=== PATIENT | female | born 1985 | race Caucasian/White ===

== ENCOUNTER 2018-10-01 22:00 | Emergency (ER) | payer BC, OTHER, MEDICAID ==
[~2018-10-01] VITALS: Ht 167.6 cm; Wt 90.9 kg
[~2018-10-01 22:00] MED LIST: /MIRT15TA OR; CLON1TAB8 PO; D400400C PO; DEPA500T2 PO; EFFE150C2 PO; EFFE37.527 OR; EFFE75CA2 PO; EFFE75CA75 OR; KLON0.5T OR; LAMI25TA OR; LAMO10TA PO; PRENTAB7 PO; RISP1TAB OR; TRAZ100T OR; TRAZ1TAB14 PO; TUMS500C PO; VITAPRTA PO; ZOLO100T PO; saphris SC
[2018-10-01] MEDS ORDERED: FLUO20CA19 (22:07)
[2018-10-01] MEDS ORDERED: ASPIRIN 81 MG CHEW TABLET PO ONE (22:30)
[2018-10-01 22:44] LABS: BASO % 0.5 % (0.0-1.0); EOS # 0.3 10^3/uL (0.0-0.50); EOS % 3.8 % (0.0-3.0); HEMATOCRIT 38.5 % (36.0-47.0); HEMOGLOBIN 12.6 g/dl (12.0-15.5); LYMPH # 2.6 10^3/uL (1.5-4.5); LYMPH % 35.4 % (24.0-44.0); MEAN CORPUSCULAR HEMOGLOBIN 30.5 pg (27.0-33.0); MEAN CORPUSCULAR HGB CONC 32.7 g/dl (32.0-36.5); MEAN CORPUSCULAR VOLUME 93.2 fl (80.0-96.0); MONO # 0.5 10^3/uL (0.0-0.8); MONO % 6.6 % (0.0-5.0); NEUTROPHILS # 3.9 10^3/uL (1.8-7.7); NEUTROPHILS % 53.3 % (36.0-66.0); PLATELET COUNT, AUTOMATED 287 10^3/uL (150-450); RED BLOOD COUNT 4.13 10^6/uL (4.00-5.40); WHITE BLOOD COUNT 7.3 10^3/uL (4.0-10.0)
[2018-10-01 23:08] LABS: INR 0.9; PARTIAL THROMBOPLASTIN TIME 28.9 SECONDS (25.4-37.6); PROTHROMBIN TIME 12.2 SECONDS (12.1-14.4)
[2018-10-01 23:12] LABS: HCG, SERUM QUALITATIVE NEGATIVE (NEGATIVE)
[2018-10-01 23:20] LABS: ALBUMIN 3.9 GM/DL (3.2-5.2); ALT/SGPT 22 U/L (12-78); BILIRUBIN,DIRECT < 0.1 MG/DL (0.0-0.2); BILIRUBIN,TOTAL 0.3 MG/DL (0.2-1.0); BLOOD UREA NITROGEN 13 MG/DL (7-18); CALCIUM LEVEL 8.9 MG/DL (8.5-10.1); CARBON DIOXIDE LEVEL 26 MEQ/L (21-32); CHLORIDE LEVEL 109 MEQ/L (98-107); CPK CREATINE PHOSPHOKINASE 170 U/L (26-192); CREATININE FOR GFR 0.92 MG/DL (0.55-1.30); FREE T4 0.87 NG/DL (0.76-1.46); GLOMERULAR FILTRATION RATE > 60.0 (>60); GLUCOSE, FASTING 86 MG/DL (70-100); LIPASE 130 U/L (73-393); MB/CK RELATIVE INDEX 0.88 (< OR =4); SODIUM LEVEL 141 MEQ/L (136-145); TOTAL PROTEIN 6.8 GM/DL (6.4-8.2); TROPONIN I < 0.02 NG/ML (< 0.10)
[2018-10-01] MEDS ORDERED: ISOVUE-370 76% 100ML VIAL (Q9967) As Ordered ONE (23:25)
--- NOTE | 2018-10-02 00:11 | REPVR ---
EXAM: CT Angiography Chest With Contrast EXAM DATE/TIME: 10/01/2018 11:39 PM CLINICAL HISTORY: 33 years old, female; Pain; Chest pain; Type not specified; Additional info: Chest pain, syncope TECHNIQUE: Axial computed tomographic angiography images of the chest with intravenous contrast using CT angiography protocol. All CT scans at this facility use at least one of these dose optimization techniques: automated exposure control; mA and/or kV adjustment per patient size (includes targeted exams where dose is matched to clinical indication); or iterative reconstruction. Coronal and sagittal reformatted images were created and reviewed. MIP reconstructed images were created and reviewed. CONTRAST: 75 ml of iso administered intravenously. COMPARISON: No relevant prior studies available. FINDINGS: Pulmonary arteries: The main pulmonary artery measures 23 mm. No pulmonary embolism is identified. Aorta: The ascending thoracic aorta measures 25 mm. Lungs: Normal. No consolidation. No masses. Pleural space: Normal. No pneumothorax. No pleural effusion. Heart: Normal. No cardiomegaly. No pericardial effusion. Mediastinum: There is soft tissue conforming to the anterior mediastinum consistent with residual thymic tissue. Lymph nodes: Unremarkable. No enlarged lymph nodes. Bones/joints: Unremarkable. No acute fracture. Soft tissues: Unremarkable. IMPRESSION: Negative CTA chest. No pulmonary embolism is identified. Electronically signed by: Zohaib Lovelace On 10/02/2018 00:11:24 AM
[2018-10-02] MEDS ORDERED: NS 1,000 ML IV ONE (00:15)
[2018-10-02 05:07] LABS: MB/CK RELATIVE INDEX 0.91 (< OR =4); TROPONIN I 0.02 NG/ML (< 0.10)
[2018-10-02 06:27] VITALS: BP 133/85
--- NOTE | 2018-10-03 10:26 | ECGEPIP ---
Stationary ECG Study [facility] - ED Test Date: 2018-10-01 Pat Name: CAIO DUKES Department: Room: - Gender: F Track Inspector: gt : 1985 Requested By: VANDA Luo Order Number: [id number] Reading MD: Bessie Jeffery Measurements Intervals [place] Rate: 72 P: 66 [place]: 151 QRS: 47 QRSD: 87 T: 51 QT: 373 QTc: 409 Interpretive Statements SINUS RHYTHM WITH SINUS ARRHYTHMIA SIMILAR 10/13/14 Electronically Signed On 10-03-2018 10:26:13 EST by Bessie Jeffery
--- NOTE | 2018-10-03 10:30 | ECGEPIP ---
Stationary ECG Study [facility] - ED Test Date: 2018-10-02 Pat Name: CAIO DUKES Department: Room: - Gender: F Cellophaner: [place] : 1985 Requested By: VANDA Luo Order Number: [id number] Reading MD: Bessie Jeffery Measurements Intervals [place] Rate: 57 P: 64 [place]: 135 QRS: 31 QRSD: 85 T: 31 QT: 421 QTc: 413 Interpretive Statements SINUS BRADYCARDIA WITH SINUS ARRHYTHMIA DECREASED RATE 10/01/18 Electronically Signed On 10-03-2018 10:30:07 EST by Bessie Jeffery
== END 2018-10-02 06:31 | disposition home or self-care (01) ==
LOC: M ED 22:00
DX: R07.9 Chest pain, unspecified (principal); F31.9 Bipolar disorder, unspecified; F43.10 Post-traumatic stress disorder, unspecified; F41.9 Anxiety disorder, unspecified
CPT/HCPCS: 71275; 80048; 80076; 82550; 82553; 83690; 84439; 84443; 84484; 84703; 85025; 85610; 85730; 93005; 93041; 94760; 99285; Q9967

== ENCOUNTER → 2021-01-16 | Outpatient (CLI) | payer BC, OTHER, MEDICAID ==
[~2021-01-16] MED LIST changes: -/MIRT15TA OR; +FLUO20CA22; +LAMO100T80 PO; -LAMO10TA PO; +MIRT1TAB20 OR
--- NOTE | 2021-01-16 15:14 | REP ---
INDICATION: SOB COMPARISON: None. TECHNIQUE: PA and lateral. FINDINGS: The mediastinum and cardiac silhouette are normal. The lung cohn are clear and without acute consolidation, effusion, or pneumothorax. The skeletal structures are intact and normal. IMPRESSION: No acute cardiopulmonary process. <Electronically signed by Jimmy Orellana > 01/16/21 0161
== END ==
LOC: M WUC 14:37
PROVIDERS: ATTEND Internal Medicine
DX: R06.02 Shortness of breath (principal)

== ENCOUNTER → 2021-08-23 | Outpatient (CLI) | payer OTHER | LOC: M PLALAB 12:49 | PROVIDERS: ATTEND Advanced Practice Midwife | DX: O36.80X0 Pregnancy with inconclusive fetal viability, not applicable or unspecified (principal) ==

== ENCOUNTER 2021-08-25 19:33 | Emergency (ER) | payer OTHER ==
[~2021-08-25] VITALS: Ht 167.6 cm; Wt 96.4 kg
[2021-08-25 20:50] LABS: BASO # 0.1 10^3/uL (0.0-0.2); BASO % 0.5 % (0.0-1.0); EOS # 0.4 10^3/uL (0.0-0.5); EOS % 4.5 % (0.0-3.0); HEMOGLOBIN 12.5 g/dl (12.0-15.5); LYMPH # 2.7 10^3/uL (1.5-5.0); MEAN CORPUSCULAR HEMOGLOBIN 30.6 pg (27.0-33.0); MEAN CORPUSCULAR HGB CONC 32.9 g/dl (32.0-36.5); MEAN CORPUSCULAR VOLUME 92.9 fl (80.0-96.0); MONO # 0.7 10^3/uL (0.0-0.8); NEUTROPHILS # 5.5 10^3/uL (1.5-8.5); NEUTROPHILS % 58.6 % (36.0-66.0); PLATELET COUNT, AUTOMATED 321 10^3/uL (150-450); RED BLOOD COUNT 4.09 10^6/uL (4.00-5.40); WHITE BLOOD COUNT 9.4 10^3/uL (4.0-10.0)
[2021-08-25 23:23] VITALS: BP 131/82
== END 2021-08-25 23:25 | disposition home or self-care (01) ==
LOC: M ED 19:33
DX: O20.0 Threatened abortion (principal); O26.851 Spotting complicating pregnancy, first trimester; O34.81 Maternal care for other abnormalities of pelvic organs, first trimester; Z3A.01 Less than 8 weeks gestation of pregnancy

== ENCOUNTER → 2021-08-25 | Outpatient (CLI) | payer OTHER | LOC: M PLALAB 10:05 | PROVIDERS: ATTEND Advanced Practice Midwife | DX: O36.80X0 Pregnancy with inconclusive fetal viability, not applicable or unspecified (principal) ==

== ENCOUNTER → 2021-08-29 | Outpatient (CLI) | payer OTHER | LOC: M PLALAB 09:23 | PROVIDERS: ATTEND Advanced Practice Midwife | DX: O20.0 Threatened abortion (principal) ==

== ENCOUNTER → 2021-11-10 | Outpatient (CLI) | payer OTHER ==
[2021-11-10 13:37] LABS: BASO % 0.2 % (0.0-1.0); EOS # 0.3 10^3/uL (0.0-0.5); LYMPH # 1.8 10^3/uL (1.5-5.0); LYMPH % 21.2 % (24.0-44.0); MEAN CORPUSCULAR HEMOGLOBIN 30.3 pg (27.0-33.0); MEAN CORPUSCULAR HGB CONC 32.5 g/dl (32.0-36.5); MEAN CORPUSCULAR VOLUME 93.2 fl (80.0-96.0); MONO # 0.5 10^3/uL (0.0-0.8); MONO % 5.9 % (2.0-8.0); NEUTROPHILS # 5.7 10^3/uL (1.5-8.5); NEUTROPHILS % 69.3 % (36.0-66.0); PLATELET COUNT, AUTOMATED 279 10^3/uL (150-450); RED BLOOD COUNT 4.29 10^6/uL (4.00-5.40); WHITE BLOOD COUNT 8.3 10^3/uL (4.0-10.0)
[2021-11-10 14:49] LABS: HIV 1&2 SCREEN CENTAUR NEGATIVE (NEGATIVE)
[2021-11-10 15:22] LABS: GC DNA AMPLIFICATION NEGATIVE (NEGATIVE)
== END ==
LOC: M PLALAB 09:56
PROVIDERS: ATTEND Specialist
DX: Z34.81 Encounter for supervision of other normal pregnancy, first trimester (principal); Z3A.00 Weeks of gestation of pregnancy not specified

== ENCOUNTER → 2021-12-06 | Outpatient (CLI) | payer OTHER | LOC: M PLALAB 10:45 | PROVIDERS: ATTEND Specialist | DX: Z34.81 Encounter for supervision of other normal pregnancy, first trimester (principal); Z3A.00 Weeks of gestation of pregnancy not specified ==

== ENCOUNTER → 2022-01-05 | Outpatient (CLI) | payer OTHER | LOC: M LABSMTC 10:20 | PROVIDERS: ATTEND Anesthesiology | DX: Z01.812 Encounter for preprocedural laboratory examination (principal); Z20.822 Contact with and (suspected) exposure to COVID-19 ==

== ENCOUNTER 2022-01-09 09:03 | Day surgery (SDC) | payer OTHER ==
[~2022-01-09] VITALS: Ht 167.6 cm; Wt 96.2 kg
[2022-01-09] MEDS ORDERED: LR 1,000 ML IV ONE (09:40)
[2022-01-09] MEDS ORDERED: LIDOCAINE 2% 100MG/5ML SDV (FOR ANES.) As Ordered ONE (10:28)
[2022-01-09] MEDS ORDERED: propofoL 200 MG/20 ML VIAL As Ordered ONE (10:28)
[2022-01-09] MEDS ORDERED: fentaNYL 100 MCG/2 ML INJECTION As Ordered ONE (10:28)
[2022-01-09] MEDS ORDERED: MIDAZOLAM INJ 2MG/2ML VIAL (J2250 PER 1MG) As Ordered ONE (10:28)
[2022-01-09 11:00] LABS: HEMATOCRIT 33.5 % (36.0-47.0); HEMOGLOBIN 11.3 g/dl (12.0-15.5); MEAN CORPUSCULAR HEMOGLOBIN 31.7 pg (27.0-33.0); MEAN CORPUSCULAR HGB CONC 33.7 g/dl (32.0-36.5); MEAN CORPUSCULAR VOLUME 94.1 fl (80.0-96.0); PLATELET COUNT, AUTOMATED 261 10^3/uL (150-450); RED BLOOD COUNT 3.56 10^6/uL (4.00-5.40); WHITE BLOOD COUNT 11.4 10^3/uL (4.0-10.0)
[2022-01-09] MEDS ORDERED: ONDANSETRON 4MG/2ML VIAL As Ordered ONE (11:09)
[2022-01-09] MEDS ORDERED: dexameTHASONE 4 MG/ML 1ML VIAL (J1100 PER 1MG) As Ordered ONE (11:09)
[2022-01-09] MEDS ORDERED: KETOROLAC 60MG 2ML VIAL As Ordered ONE (11:09)
[2022-01-09] MEDS ORDERED: HYDROMORPHONE HCL 0.5 MG/ 0.5 ML SYRINGE (J1170 PER 1) IV PRN ×2 (12:05)
[2022-01-09] MEDS ORDERED: MEPERIDINE INJ 25 MG/ML VIAL (J2175) IV PRN (12:05)
[2022-01-09] MEDS ORDERED: ONDANSETRON 4MG/2ML VIAL IV PRN (12:05)
[2022-01-09] MEDS ORDERED: PROMETHAZINE 25MG/ML 1ML VIAL IV PRN (12:05)
[2022-01-09] MEDS ORDERED: oxyCODONE 5MG TAB PO PRN (12:05)
[2022-01-09] MEDS ORDERED: ACETAMINOPHEN 500 MG TAB PO ONE (12:10)
[2022-01-09] MEDS ORDERED: LR 1,000 ML IV SCH (12:10)
[2022-01-09] MEDS ORDERED: DOXYCYCLINE HYCLATE 100MG TABLET PO ONE (12:10)
[2022-01-09 13:15] VITALS: BP 114/56
== END 2022-01-09 13:28 | disposition home or self-care (01) ==
LOC: M SDC 09:03
PROVIDERS: ATTEND Specialist
DX: O02.1 Missed abortion (principal)
CPT/HCPCS: 36415; 59820; 85027; 88305; J1100; J1885; J2250; J2405; J3010; S0191

== ENCOUNTER → 2022-01-24 | Outpatient (CLI) | payer OTHER ==
[2022-01-24 14:53] LABS: FREE T4 1.04 NG/DL (0.76-1.46); THYROID STIMULATING HORMONE 0.703 uIU/ML (0.358-3.740)
[2022-01-25 11:19] LABS: DRVV SCREEN 37.3 SEC
== END ==
LOC: M PLALAB 10:19
PROVIDERS: ATTEND Specialist
DX: O02.1 Missed abortion (principal)

== ENCOUNTER 2022-03-04 21:43 | Inpatient (IN) | payer OTHER ==
[~2022-03-04] VITALS: Ht 167.6 cm; Wt 89.9 kg
[2022-03-04] MEDS ORDERED: SERT50TA29 PO (22:53)
[2022-03-04 22:54] LABS: HEMATOCRIT 38.6 % (36.0-47.0); HEMOGLOBIN 12.5 g/dl (12.0-15.5); MEAN CORPUSCULAR HEMOGLOBIN 30.3 pg (27.0-33.0); MEAN CORPUSCULAR HGB CONC 32.4 g/dl (32.0-36.5); MEAN CORPUSCULAR VOLUME 93.5 fl (80.0-96.0); PLATELET COUNT, AUTOMATED 288 10^3/uL (150-450); RED BLOOD COUNT 4.13 10^6/uL (4.00-5.40); WHITE BLOOD COUNT 8.4 10^3/uL (4.0-10.0)
[2022-03-04 23:10] LABS: AMPHETAMINES LEVEL URINE NEGATIVE (NEGATIVE); BARBITURATES URINE NEGATIVE (NEGATIVE); BENZODIAZEPINES URINE NEGATIVE (NEGATIVE); CANNABINOIDS URINE NEGATIVE (NEGATIVE); COCAINE METABOLITE URINE NEGATIVE (NEGATIVE); METHADONE URINE NEGATIVE (NEGATIVE); OPIATES URINE NEGATIVE (NEGATIVE); PHENCYCLIDINE URINE NEGATIVE (NEGATIVE)
[2022-03-04 23:17] LABS: RSV AMPLIFICATION NEGATIVE (NEGATIVE)
[2022-03-04 23:21] LABS: ALT/SGPT 27 U/L (12-78); BILIRUBIN,DIRECT 0.1 MG/DL (0.0-0.2); BILIRUBIN,TOTAL 0.2 MG/DL (0.2-1.0); BLOOD UREA NITROGEN 11 MG/DL (7-18); CALCIUM LEVEL 8.8 MG/DL (8.5-10.1); CARBON DIOXIDE LEVEL 22 MEQ/L (21-32); CHLORIDE LEVEL 109 MEQ/L (98-107); CREATININE FOR GFR 0.88 MG/DL (0.55-1.30); ETHYL ALCOHOL (ETHANOL) 0.013 % (0.000-0.010); GLOMERULAR FILTRATION RATE > 60.0 (>60); GLUCOSE, FASTING 86 MG/DL (70-100); POTASSIUM SERUM 3.9 MEQ/L (3.5-5.1); SALICYLATE LEVEL < 1.7 MG/DL (5.0-30.0); SODIUM LEVEL 141 MEQ/L (136-145); TOTAL PROTEIN 7.1 GM/DL (6.4-8.2)
[2022-03-04] MEDS ORDERED: MAGNESIUM PO (23:36)
[2022-03-04] MEDS ORDERED: HOME MED LIST COMPLETE! XX SCH (23:40)
[2022-03-05 00:03] LABS: HCG, SERUM QUALITATIVE NEGATIVE (NEGATIVE)
[2022-03-05 01:45] LABS: ACETAMINOPHEN LEVEL < 2.0 UG/ML (0.0-30.0)
[2022-03-05] MEDS ORDERED: NICOTINE 21MG/24HR 1 EA TRANSDERMAL TD SCH (09:00)
[2022-03-05] MEDS ORDERED: traZODone 50 MG TAB PO PRN (15:15)
[2022-03-05] MEDS ORDERED: LORazepam 2 MG TAB PO PRN (15:15)
[2022-03-05] MEDS ORDERED: MOM 30ML SUSPENSION UDC PO PRN (15:15)
[2022-03-05] MEDS ORDERED: ACETAMINOPHEN TAB 650MG DOSE (2X325MG) PO PRN (15:15)
[2022-03-05] MEDS ORDERED: MAALOX 30 ML SUSP *UDC PO PRN (15:15)
[2022-03-05] MEDS: FOLIC ACID 1 MG TAB PO SCH (17:45)
[2022-03-05] MEDS: MULTIVITAMINS/MINERALS THERAP 1 TAB PO SCH (17:45)
[2022-03-05] MEDS ORDERED: SERTRALINE HCL 50 MG TAB PO SCH (21:00)
[2022-03-06] VITALS (7 sets, daily range): BP systolic 130–195; BP diastolic 64–99
[2022-03-06] MEDS: THIAMINE 100 MG TAB PO SCH ×2 (01:02→09:43)
[2022-03-06] MEDS: MULTIVITAMINS/MINERALS THERAP 1 TAB PO SCH (09:43)
[2022-03-06] MEDS: FOLIC ACID 1 MG TAB PO SCH (09:43)
[2022-03-06] MEDS: SERTRALINE HCL 25 MG TABLET PO SCH (22:04)
[2022-03-07 06:00] VITALS: BP 106/58
[2022-03-07] MEDS: FOLIC ACID 1 MG TAB PO SCH (09:58)
[2022-03-07] MEDS: MULTIVITAMINS/MINERALS THERAP 1 TAB PO SCH (09:58)
[2022-03-07 18:13] VITALS: BP 140/86
[2022-03-07] MEDS: SERTRALINE HCL 25 MG TABLET PO SCH (21:47)
[2022-03-08 06:58] VITALS: BP 116/65
[2022-03-08] MEDS: MULTIVITAMINS/MINERALS THERAP 1 TAB PO SCH (09:29)
[2022-03-08] MEDS: FOLIC ACID 1 MG TAB PO SCH (09:29)
[2022-03-08 18:20] VITALS: BP 144/84
[2022-03-08] MEDS: SERTRALINE HCL 25 MG TABLET PO SCH (21:58)
[2022-03-09 06:32] VITALS: BP 126/68
[2022-03-09] MEDS: MULTIVITAMINS/MINERALS THERAP 1 TAB PO SCH (09:11)
[2022-03-09] MEDS: FOLIC ACID 1 MG TAB PO SCH (09:11)
[2022-03-09] MEDS ORDERED: SERT25TA21 PO (10:13)
== END 2022-03-09 11:31 | disposition home or self-care (01) | DRG 754 ==
LOC: M ED 21:43 → M ED INP 03-05 15:14 → M PSY 03-06 00:02
PROVIDERS: ADMIT Psychiatry & Neurology Psychiatry; ATTEND Psychiatry & Neurology Psychiatry
DX: F32.9 Major depressive disorder, single episode, unspecified (principal); R45.851 Suicidal ideations; F41.9 Anxiety disorder, unspecified; F43.10 Post-traumatic stress disorder, unspecified; F60.3 Borderline personality disorder; Z87.59 Personal history of other complications of pregnancy, childbirth and the puerperium; G47.10 Hypersomnia, unspecified; Z62.810 Personal history of physical and sexual abuse in childhood; Z87.891 Personal history of nicotine dependence

== ENCOUNTER → 2022-06-05 | Outpatient (CLI) | payer BC ==
[~2022-06-05] MED LIST changes: +MAGNESIUM PO; +SERT25TA21 PO; +SERT50TA29 PO
[2022-06-05 16:08] LABS: HEMATOCRIT 38.4 % (36.0-47.0); MEAN CORPUSCULAR HEMOGLOBIN 31.3 pg (27.0-33.0); MEAN CORPUSCULAR HGB CONC 33.9 g/dl (32.0-36.5); MEAN CORPUSCULAR VOLUME 92.3 fl (80.0-96.0); PLATELET COUNT, AUTOMATED 276 10^3/uL (150-450); RED BLOOD COUNT 4.16 10^6/uL (4.00-5.40); WHITE BLOOD COUNT 8.4 10^3/uL (4.0-10.0)
[2022-06-05 17:16] LABS: GC DNA AMPLIFICATION NEGATIVE (NEGATIVE)
[2022-06-05 21:00] LABS: HEPATITIS C VIRUS ABY INDEX < 0.0 INDEX (<0.8); HIV 1&2 SCREEN CENTAUR NEGATIVE (NEGATIVE)
== END ==
LOC: M PLALAB 12:17
PROVIDERS: ATTEND Advanced Practice Midwife
DX: O09.529 Supervision of elderly multigravida, unspecified trimester (principal); O09.511 Supervision of elderly primigravida, first trimester; Z3A.00 Weeks of gestation of pregnancy not specified

== ENCOUNTER → 2022-07-06 | Outpatient (CLI) | payer BC | LOC: M WHC 15:04 | PROVIDERS: ATTEND Advanced Practice Midwife | DX: Z34.92 Encounter for supervision of normal pregnancy, unspecified, second trimester (principal); Z3A.00 Weeks of gestation of pregnancy not specified; Z53.9 Procedure and treatment not carried out, unspecified reason ==

== ENCOUNTER → 2022-07-23 | Outpatient (CLI) | payer BC | LOC: M PLALAB 13:20 | PROVIDERS: ATTEND Specialist | DX: Z34.82 Encounter for supervision of other normal pregnancy, second trimester (principal); Z3A.00 Weeks of gestation of pregnancy not specified ==

== ENCOUNTER → 2022-07-31 | Outpatient (CLI) | payer BC | LOC: M WHC 14:29 | PROVIDERS: ATTEND Advanced Practice Midwife | DX: Z34.92 Encounter for supervision of normal pregnancy, unspecified, second trimester (principal); Z3A.19 19 weeks gestation of pregnancy ==

== ENCOUNTER → 2022-08-24 | Outpatient (CLI) | payer BC | LOC: M RAD 09:56 | PROVIDERS: ATTEND Advanced Practice Midwife | DX: O09.522 Supervision of elderly multigravida, second trimester (principal) ==

== ENCOUNTER → 2022-10-10 | Outpatient (CLI) | payer BC ==
[2022-10-10 15:06] LABS: HEMATOCRIT 34.1 % (36.0-47.0); HEMOGLOBIN 10.9 g/dl (12.0-15.5); MEAN CORPUSCULAR HEMOGLOBIN 31.5 pg (27.0-33.0); MEAN CORPUSCULAR VOLUME 98.6 fl (80.0-96.0); PLATELET COUNT, AUTOMATED 260 10^3/uL (150-450); RED BLOOD COUNT 3.46 10^6/uL (4.00-5.40); WHITE BLOOD COUNT 10.5 10^3/uL (4.0-10.0)
[2022-10-10 16:47] LABS: GC DNA AMPLIFICATION NEGATIVE (NEGATIVE)
== END ==
LOC: M PLALAB 09:17
PROVIDERS: ATTEND Obstetrics & Gynecology
DX: Z34.92 Encounter for supervision of normal pregnancy, unspecified, second trimester (principal)

== ENCOUNTER → 2022-10-18 | Outpatient (CLI) | payer BC | LOC: M LAB 07:33 | PROVIDERS: ATTEND Advanced Practice Midwife | DX: O99.810 Abnormal glucose complicating pregnancy (principal) ==

== ENCOUNTER → 2022-11-26 | Outpatient (REF) | payer BC, OTHER | LOC: M SFHCWAGY 12:54 | PROVIDERS: ATTEND Specialist | DX: Z34.83 Encounter for supervision of other normal pregnancy, third trimester (principal) ==

== ENCOUNTER 2022-12-23 09:56 | Inpatient (IN) | payer BC, OTHER ==
[2022-12-23] VITALS (36 sets, daily range): BP systolic 105–158; BP diastolic 56–86
[~2022-12-23] VITALS: Ht 167.6 cm; Wt 99.2 kg
[2022-12-23] MEDS ORDERED: ZOLO50TA PO (10:31)
[2022-12-23] MEDS ORDERED: ASPI81TA26 PO (10:31)
[2022-12-23] MEDS ORDERED: BENA25CA4 PO (10:31)
[2022-12-23] MEDS ORDERED: TUMS500C PO (10:31)
[2022-12-23] MEDS ORDERED: HOME MED LIST COMPLETE! XX SCH (10:35)
[2022-12-23 11:31] LABS: HEMATOCRIT 31.9 % (36.0-47.0); HEMOGLOBIN 10.7 g/dl (12.0-15.5); MEAN CORPUSCULAR HEMOGLOBIN 31.8 pg (27.0-33.0); MEAN CORPUSCULAR HGB CONC 33.5 g/dl (32.0-36.5); MEAN CORPUSCULAR VOLUME 94.9 fl (80.0-96.0); PLATELET COUNT, AUTOMATED 180 10^3/uL (150-450); RED BLOOD COUNT 3.36 10^6/uL (4.00-5.40); WHITE BLOOD COUNT 9.6 10^3/uL (4.0-10.0)
[2022-12-23] MEDS ORDERED: METHYLERGONOVINE MALEATE 0.2MG/ML 1ML VIAL IM PRN (11:45)
[2022-12-23] MEDS ORDERED: miSOPROStol 50MCG 1/2 TABLET PO SCH (11:45)
[2022-12-23] MEDS ORDERED: TRANEXAMIC ACID INJection 1,000 MG in NS 100 ML IV PRN (11:45)
[2022-12-23] MEDS ORDERED: LIDOCAINE 1% MDV 20ML VIAL INFIL PRN (11:45)
[2022-12-23] MEDS: CALCIUM CARBONATE 500 MG CHEW U/D PO PRN ×2 (13:08→19:34)
[2022-12-23] MEDS ORDERED: OXYTOCIN DRIP 30 UNITS in IV 1 EA IV SCH (16:20)
[2022-12-23] MEDS: LR 1,000 ML IV SCH ×2 (16:38→21:24)
[2022-12-23] MEDS ORDERED: FENTANYL/ROPIVACAINE/NACL BAG 100 ML EPIDURAL SCH (20:30)
[2022-12-23] MEDS ORDERED: ePHEDrine SULFATE 25 MG/5 ML(5MG/ML) SYRINGE IVP PRN (20:30)
[2022-12-23] MEDS ORDERED: diphenhydrAMINE 50MG/ML VIAL IV PRN (20:30)
[2022-12-23] MEDS ORDERED: NALOXONE INJ 0.4MG/1ML VIAL IV PRN (20:30)
[2022-12-23] MEDS ORDERED: EPIDURAL/PCA KEYS XX PRN (20:30)
[2022-12-23] MEDS ORDERED: ONDANSETRON 4MG 2ML VIAL IV PRN (20:30)
[2022-12-23] MEDS ORDERED: LR 500 ML IV PRN (20:30)
[2022-12-23] MEDS: SERTRALINE HCL 50 MG TAB PO SCH (21:26)
[2022-12-24] VITALS (10 sets, daily range): BP systolic 116–152; BP diastolic 65–74
[2022-12-24 01:04] LABS: CORD GAS HCO3 A 26.4 MEQ/L; CORD GAS O2 SAT A 23.6 %; CORD GAS PCO2 A 54.5 mmHg; CORD GAS PH A 7.303 UNITS; CORD GAS PO2 A 14.8 mmHg; CORD GAS SBC A 21.8 MEQ/L; CORD GAS TCO2 A 28.1 MEQ/L
[2022-12-24] MEDS ORDERED: DOCUSATE SODIUM 100MG CAPSULE PO PRN (01:05)
[2022-12-24] MEDS ORDERED: MOM 30ML SUSPENSION UDC PO PRN (01:05)
[2022-12-24] MEDS ORDERED: RHOGAM 300MCG (1500IU) INJ IM SCH (01:05)
[2022-12-24] MEDS ORDERED: METHYLERGONOVINE MALEATE 0.2 MG TAB PO PRN (01:05)
[2022-12-24] MEDS ORDERED: IBUPROFEN 600MG TAB PO PRN (01:05)
[2022-12-24] MEDS ORDERED: OXYTOCIN DRIP 30 UNITS in IV 1 EA IV SCH (01:05)
[2022-12-24] MEDS ORDERED: IBUPROFEN 800 MG TAB PO PRN (01:05)
[2022-12-24] MEDS ORDERED: ACETAMINOPHEN TAB 650MG DOSE (2X325MG) PO PRN (01:05)
[2022-12-24] MEDS ORDERED: DIBUCAINE 1% OINTMENT 30GM TOP PRN (01:05)
[2022-12-24] MEDS ORDERED: ACETAMINOPHEN 500 MG TAB PO PRN (01:05)
[2022-12-24 01:06] LABS: CORD GAS ABE V -1.1; CORD GAS HCO3 V 24.5 MEQ/L; CORD GAS O2 SAT V 45.2 %; CORD GAS PCO2 V 44.2 mmHg; CORD GAS PH V 7.362 UNITS; CORD GAS PO2 V 20.5 mmHg; CORD GAS SBC V 22.3 MEQ/L; CORD GAS TCO2 V 25.9 MEQ/L
[2022-12-24] MEDS: PRENATAL VITAMINS CHEWABLE TABLET PO SCH (10:24)
[2022-12-24] MEDS: SERTRALINE HCL 50 MG TAB PO SCH (21:58)
[2022-12-25 05:51] VITALS: BP 120/59
[2022-12-25] MEDS: PRENATAL VITAMINS CHEWABLE TABLET PO SCH (09:43)
[2022-12-25] MEDS ORDERED: BOOSTRIX VACCINE (TETANUS/DIPHTH/ACEL. PERTUSSIS) 0.5ML SYR IM.IMMUN ONE (15:00)
[2022-12-26] MEDS ORDERED: MEASLES,MUMPS,RUBELLA VACCINE INJ (MMR-II) SC.IMMUN ONE (09:00)
== END 2022-12-25 18:29 | disposition home or self-care (01) | DRG 560 ==
LOC: M LDI 09:56 → M OBS 12-24 03:20
PROVIDERS: ADMIT Obstetrics & Gynecology; ATTEND Obstetrics & Gynecology
PROC: 3E033VJ Introduction of Other Hormone into Peripheral Vein, Percutaneous Approach (ICD-10-PCS; 2022-12-23)
PROC: 3E0P7VZ Introduction of Hormone into Female Reproductive, Via Natural or Artificial Opening (ICD-10-PCS; 2022-12-23)
PROC: 10E0XZZ Delivery of Products of Conception, External Approach (ICD-10-PCS; principal; 2022-12-24)
DX: O48.0 Post-term pregnancy (principal); O09.523 Supervision of elderly multigravida, third trimester; Z37.0 Single live birth; Z3A.40 40 weeks gestation of pregnancy; Z87.891 Personal history of nicotine dependence

== ENCOUNTER → 2023-03-01 | Outpatient (CLI) | payer BC, OTHER ==
[~2023-03-01] MED LIST changes: +ASPI81TA26 PO; +BENA25CA4 PO; +ZOLO50TA PO
== END ==
LOC: M WUC 11:56
PROVIDERS: ATTEND Nurse Practitioner Family
DX: M79.671 Pain in right foot (principal)

== ENCOUNTER → 2023-12-03 | Outpatient (CLI) | payer SELFPAY ==
[~2023-12-03] MED LIST changes: -EFFE150C2 PO; +EFFE150C3 PO
[2023-12-03 15:34] LABS: HEMATOCRIT 39.5 % (36.0-47.0); HEMOGLOBIN 12.8 g/dl (12.0-15.5); MEAN CORPUSCULAR HEMOGLOBIN 30.1 pg (27.0-33.0); MEAN CORPUSCULAR HGB CONC 32.4 g/dl (32.0-36.5); MEAN CORPUSCULAR VOLUME 92.9 fl (80.0-96.0); PLATELET COUNT, AUTOMATED 294 10^3/uL (150-450); RED BLOOD COUNT 4.25 10^6/uL (4.00-5.40); WHITE BLOOD COUNT 10.3 10^3/uL (4.0-10.0)
[2023-12-03 16:28] LABS: HIV 1&2 SCREEN NEGATIVE (NEGATIVE)
[2023-12-03 16:37] LABS: HEPATITIS C VIRUS ABY INDEX < 0.02 INDEX (<0.8)
[2023-12-03 17:07] LABS: GC DNA AMPLIFICATION NEGATIVE (NEGATIVE)
== END ==
LOC: M PLALAB 14:19
PROVIDERS: ATTEND Advanced Practice Midwife
DX: Z34.91 Encounter for supervision of normal pregnancy, unspecified, first trimester (principal)

== ENCOUNTER → 2023-12-24 | Outpatient (REF) | payer OTHER | LOC: M PLALAB 10:31 | PROVIDERS: ATTEND Obstetrics & Gynecology | DX: Z34.81 Encounter for supervision of other normal pregnancy, first trimester (principal) ==

== ENCOUNTER → 2024-02-17 | Outpatient (CLI) | payer SELFPAY ==
[~2024-02-17] MED LIST changes: +FLUO-365; -FLUO20CA22
== END ==
LOC: M PLALAB 09:01
PROVIDERS: ATTEND Obstetrics & Gynecology
DX: O09.519 Supervision of elderly primigravida, unspecified trimester (principal); Z3A.00 Weeks of gestation of pregnancy not specified

== ENCOUNTER → 2024-02-27 | Outpatient (CLI) | payer SELFPAY | LOC: M RAD 10:12 | PROVIDERS: ATTEND Obstetrics & Gynecology | DX: Z34.92 Encounter for supervision of normal pregnancy, unspecified, second trimester (principal); Z3A.19 19 weeks gestation of pregnancy; Z87.59 Personal history of other complications of pregnancy, childbirth and the puerperium ==

== ENCOUNTER → 2024-04-30 | Outpatient (CLI) | payer SELFPAY ==
[2024-04-30 13:20] LABS: GLUCOSE CHALLENGE TEST 1 HOUR 163 MG/DL (LESS THAN 140)
[2024-04-30 13:23] LABS: HEMATOCRIT 32.4 % (36.0-47.0); HEMOGLOBIN 10.3 g/dl (12.0-15.5); MEAN CORPUSCULAR HGB CONC 31.8 g/dl (32.0-36.5); MEAN CORPUSCULAR VOLUME 97.6 fl (80.0-96.0); PLATELET COUNT, AUTOMATED 236 10^3/uL (150-450); RED BLOOD COUNT 3.32 10^6/uL (4.00-5.40); WHITE BLOOD COUNT 9.8 10^3/uL (4.0-10.0)
[2024-04-30 13:51] LABS: HIV 1&2 SCREEN NEGATIVE (NEGATIVE)
[2024-04-30 13:59] LABS: HEPATITIS C VIRUS ABY INDEX < 0.02 INDEX (<0.8)
== END ==
LOC: M PLALAB 09:47
PROVIDERS: ATTEND Advanced Practice Midwife
DX: Z34.82 Encounter for supervision of other normal pregnancy, second trimester (principal)

== ENCOUNTER → 2024-05-13 | Outpatient (REF) | payer SELFPAY ==
[2024-05-13 19:51] LABS: GC DNA AMPLIFICATION NEGATIVE (NEGATIVE)
== END ==
LOC: M SFHCWAGY 17:18
PROVIDERS: ATTEND Advanced Practice Midwife
DX: Z34.82 Encounter for supervision of other normal pregnancy, second trimester (principal)

== ENCOUNTER → 2024-05-20 | Outpatient (CLI) | payer SELFPAY | LOC: M LAB 07:23 | PROVIDERS: ATTEND Advanced Practice Midwife | DX: O99.810 Abnormal glucose complicating pregnancy (principal); Z3A.00 Weeks of gestation of pregnancy not specified ==

== ENCOUNTER → 2024-06-08 | Outpatient (CLI) | payer SELFPAY | LOC: M WHC 13:51 | PROVIDERS: ATTEND Obstetrics & Gynecology | DX: O09.523 Supervision of elderly multigravida, third trimester (principal) ==

== ENCOUNTER → 2024-06-17 | Outpatient (REF) | payer SELFPAY | LOC: M SFHCWAGY 17:00 | PROVIDERS: ATTEND Specialist | DX: O24.419 Gestational diabetes mellitus in pregnancy, unspecified control (principal) ==